=== PATIENT | female | born 1980 | race African-American/Black ===

== ENCOUNTER 2024-07-07 08:44 | Outpatient (CLI) | payer BC, SELFPAY ==
--- NOTE | ~2024-07-07 | MM_ITS ---
EXAMINATION: MM screening chandan BI w mulu HISTORY: Screening mammogram TECHNIQUE: Craniocaudal and mediolateral oblique 3-D tomosynthesis images were obtained and synthetic 2-D images were generated. CAD analysis was submitted and interpreted. COMPARISON: No prior mammogram is available for comparison at this institution. BREAST PARENCHYMAL COMPOSITION:Not Dense. The breasts are almost entirely fatty FINDINGS: No suspicious mass, calcification, or architectural distortion are identified in either mundo ast to suggest malignancy. There has been no suspicious interval change. IMPRESSION: No mammographic evidence of malignancy. Recommend routine screening mammography in one year. BI-RADS Category 1: Negative Reviewed, dictated and finalized at location . RUMENT TECHNOLOGIST
== END 2024-07-07 08:45 | disposition home or self-care (01) ==
LOC: ANHIMG 08:46
PROVIDERS: PCP Emergency Medicine; Visit Provider Emergency Medicine
DX: Z12.31 Encounter for screening mammogram for malignant neoplasm of breast (principal)
CPT/HCPCS: 77063; 77067

== ENCOUNTER 2025-07-26 09:50 | Outpatient (CLI) | payer BC, SELFPAY ==
--- NOTE | 2025-07-26 10:30 | NEURO_ITS ---
Clinical note: Patient is 44-year-old with history of paresthesias in both upper limbs particularly in the hands and fingers. No history of diabetes mellitus or major trauma. A brief neurological examination did not show evidence for any focal muscle wasting or fasciculations or weakness. The results of EMG and nerve conduction study are given below. Summary of findings: 1. Left and right median motor distal latencies are mildly prolonged. Amplitudes are mildly decreased and conduction velocity from elbow to wrist were within normal limits. 2. Left and right ulnar motor distal latencies, amplitudes and conduction velocities were within normal limits however there is a mild focal slowing across the left elbow. 3. Right median palmar and digital sensory distal latencies are mildly prolonged and conduction velocity mildly decreased. Left median palmar sensory distal latency was normal however the difference within the palmar distal latency with the radial distal latency was mildly prolonged and also left median digital sensory distal latency mildly prolonged. Left night ulnar palmar sensory distal latency was normal however amplitudes were decreased, right more than left side. Left and right ulnar sensory distal latencies a mildly prolonged amplitude of moderate decreased on the right and normal on the left side. Left and right radial sensory distal latencies amplitudes within normal limits. 4. EMG examination is performed were various muscles examined in both upper Limbs using a monopolar needle electrode. No denervation changes were seen. Decreased recruitment was noted in the left 1st dorsal interossei. Impression: 1. Mild right and minimal left carpal tunnel syndrome. No denervation changes were noted in the bilateral abductor pollicis brevis. 2. 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 Mild decreased recruitment was noted in the left 1st dorsal interossei but no denervation changes were seen. 3. Bilateral ulnar digital sensory distal latencies mildly prolonged and amplitudes were particular decreased on the right side. These findings may raise possibility of underlying peripheral neuropathy versus mild ulnar neuropathy at wrist. Clinical correlation is recommended. EMG and nerve conduction study of the lower limbs may be helpful if clinically indicated. Dawood RASMUSSEN MD, FAAN, FAANEM Neurology and electrodiagnostic Medicine Nerve Conduction Studies Motor Nerve Results ? Latency Amplitude F-Lat Segment Distance CV Comment Site (ms) (mV) (ms) (cm) (m/s) Left Median (APB) Motor Wrist 4.5 5.4 Elbow 8.8 6.1 Elbow-Wrist 210 49 Right Median (APB) Motor Wrist 4.5 4.5 Elbow 8.7 4.8 Elbow-Wrist 215 51 Left Ulnar (ADM) Motor Wrist 3.0 8.5 Bel Elbow 6.1 5.7 Bel Elbow-Wrist 200 65 Abv Elbow 7.8 5.8 Abv Elbow-Bel Elbow 75 44 Right Ulnar (ADM) Motor Wrist 3.4 7.7 Bel Elbow 6.9 6.2 Bel Elbow-Wrist 205 59 Abv Elbow 8.5 4.9 Abv Elbow-Bel Elbow 80 50 Sensory Nerve Results ? Latency (Peak) Amplitude (P-P) Segment Distance CV Comment Site (ms) (?V) (cm) (m/s) Left Median DigIII Sensory Wrist-Dig III 3.9 61 Wrist-Dig III 145 37 Right Median DigIII Sensory Wrist-Dig III 4.1 48 Wrist-Dig III 145 35 Left Median-Ulnar Palmar Sensory ? Median Palm-Wrist 2.2 34 Palm-Wrist 80 36 ? Ulnar Palm-Wrist 1.93 10 Palm-Wrist 80 41 Right Median-Ulnar Palmar Sensory ? Median Palm-Wrist 2.4 20 Palm-Wrist 80 33 ? Ulnar Palm-Wrist 1.78 2 Palm-Wrist 80 45 Left Radial Sensory Forearm-Wrist 1.68 44 Forearm-Wrist 100 60 Right Radial Sensory Forearm-Wrist 1.88 42 Forearm-Wrist 100 53 Left Ulnar Sensory Wrist-Dig V 3.6 24 Wrist-Dig V 145 40 Right Ulnar Sensory Wrist-Dig V 3.5 7 Wrist-Dig V 145 41 Electromyography ?Side Muscle Nerve Ins Act Fibs Psw Amp Dur Recrt Comment Right Deltoid Axillary Nml Nml Nml Nml Nml Nml Right Biceps Musculocut Nml Nml Nml Nml Nml Nml Right Triceps Radial Nml Nml Nml Nml Nml Nml Right Ext Digitorum Radial (Post Int) Nml Nml Nml Nml Nml Nml Right ExtCarUln Radial (Post Int) Nml Nml Nml Nml Nml Nml Right Ext Indicis Radial (Post Int) Nml Nml Nml Nml Nml Nml Right FlexPolLong Median (Ant Int) Nml Nml Nml Nml Nml Nml Right 1stDorInt Ulnar Nml Nml Nml Nml Nml Nml Right Abd Poll Brev Median Nml Nml Nml Nml Nml Nml Right FlexDigProf Ulnar Nml Nml Nml Nml Nml Nml Right FlexCarRad Median Nml Nml Nml Nml Nml Nml Left Deltoid Axillary Nml Nml Nml Nml Nml Nml Left Biceps Musculocut Nml Nml Nml Nml Nml Nml Left Triceps Radial Nml Nml Nml Nml Nml Nml Left Ext Digitorum Radial (Post Int) Nml Nml Nml Nml Nml Nml Left ExtCarUln Radial (Post Int) Nml Nml Nml Nml Nml Nml Left Ext Indicis Radial (Post Int) Nml Nml Nml Nml Nml Nml Left FlexPolLong Median (Ant Int) Nml Nml Nml Nml Nml Nml Left 1stDorInt Ulnar Nml Nml Nml Nml >12ms +1 Left Abd Poll Brev Median Nml Nml Nml Nml Nml Nml Left FlexDigProf Ulnar Nml Nml Nml Nml Nml Nml Left FlexCarRad Median Nml Nml Nml Nml Nml Nml
--- OUTSIDE RECORDS SUMMARY | 2025-07-26 10:45 | XMS_ITS | Clinical Summary ---
Author Organization [facility] Care Team Providers Care Patient Financial Services Manager Name Role Phone Unavailable Primary Care Provider Unavailabl e Social History Tobacco Use Types Packs/Day Years Used Date Smoking Tobacco: Never Assessed Comments Unknown Sex and Gender Information Value Date Recorded Sex Assigned at Not on file Legal Sex Female 7:26 AM [employer] Gender Identity Not on file Sexual Orientation Not on file Plan of Treatment Health Maintenance Due Date Last Done Comments Hepatitis C Virus (HCV) Screening 1980 TdaP Immunization 1980 Hepatitis B Immunization (1 of 3 - 19+ 3-dose series) 10/21/1998 Pap Smear 10/21/2000 Human Papillomavirus (HPV) Immunization (1 - 3-dose SCDM series) 10/21/2006 Cervical Cancer Screening (CCS) 10/21/2009 HPV/Cotest 10/21/2009 Cologuard 10/21/2024 Colonoscopy 10/21/2024 Colorectal Cancer Screening 10/21/2024 Immunochemical Fecal Occult Blood 10/21/2024 Influenza Immunization (#1) 2025 SARS-COV-2 Immunization ( season) 2025 Respiratory Syncytial Virus (RSV) Immunization (Adult) (1 - 1-dose 75+ series) 10/21/2054 Meningococcal Immunization (ACWY) Aged Out No longer eligible based on patient's age to complete this topic Pneumococcal Immunization Combined Aged Out No longer eligible based on patient's age to complete this topic Rotavirus Immunization Aged Out No lo nger eligible based on patient's age to complete this topic
--- OUTSIDE RECORDS SUMMARY | 2025-07-26 10:45 | XMS_ITS | Clinical Summary ---
Author Organization [facility] Address [address] [place] [address] Phone Care Team Providers Care Adjunct Nursing Faculty Name Role Phone Andreina Marisela ADMINISTRATIVE OFFICE MANAGER Unavailable [phone] Chen Martinez ADMINISTRATIVE OFFICE MANAGER Unavailable [phone] Ruddy Taveras MD Primary Care Provider [phone] Allergies No known active allergies Medications carBAMazepine (TEGretol) 200 mg tablet 09/07/2017Carbamazepi ne, po solid 200 mg TabletPOBIDCurrent Medication 09/07/19 18 Active famotidine (PEPCID) 20 mg tablet Take 1 tablet (20 mg total) by mouth 2 (two) times a day 0 03/02/20 19 Active predniSONE (DELTASONE) 10 mg tablet 0 03/02/20 19 Active folic acid (FOLVITE) 1 mg tablet Active docusate sodium (COLACE) 100 mg capsule Active oxyCODONE-acet aminophen (PERCOCET) 5-325 mg per tablet Active ondansetron (ZOFRAN) 4 mg tablet Active levETIRAcetam (KEPPRA) 750 mg tablet Active levETIRAcetam (KEPPRA) 250 mg tablet Active ibuprofen (ADVIL,MOTRIN) 600 mg tablet Active ibuprofen (ADVIL,MOTRIN) 400 mg tablet Active diphenhydrAMIN E (BENADRYL) 50 mg capsule Active PNV with hygvxig-omxp-K A 27 mg iron- 1 mg tablet Active cyanocobalamin -cobamamide 5,000-100 mcg lozenge Active norethindrone (MICRONOR) 0.35 mg tablet 06/23/20 Active bisacodyl EC (DULCOLAX EC) 5 mg EC tabletIndicati ons:constipati on Take 1 tablet (5 mg total) by mouth daily as needed for constipation 4 tablet 05/19/20 Active Additional Information Patient not taking.Reported on 05/30/2025 amLODIPine (NORVASC) 10 mg tablet Take 1 tablet (10 mg total) by mouth daily Act theodore Active Problems Problem Noted Date Diagnosed Date B12 deficiency 12/01/2024 Screening for colon cancer 09/15/2024 Assessment & Plan (09/15/2024 8:13 AM TOOL DISPATCHER): Colonoscopy May 2024 with internal hemorrhoids, otherwise unremarkable. -Repeat colonoscopy May 2034 Gastric intestinal metaplasia 09/15/2024 Assessment & Plan (09/15/2024 8:17 AM TOOL DISPATCHER): Noted on pathology from EGD biopsies May 2024. -Repeat EGD May 2027 for surveillance -Order labs - intrinsic factor antibody, antiparietal cell antibody, gastrin level, and vitamin B12 Iron deficiency anemia, unspecified 04/27/2019 Iron deficiency anemia 05/11/2017 Assessment & Plan (09/15/2024 8:12 AM TOOL DISPATCHER): Patient has a history of iron-deficiency anemia and has been on IV iron infusions. Patient denies any overt GI bleeding. EGD and colonoscopy May 2024 with gastritis and internal hemorrhoids, otherwise unremarkable. Capsule Endoscopy June 2024 normal. -Continue to follow up with Hematology Assessment & Plan (05/19/2024 11:59 AM CDT): Patient has a history of iron-deficiency anemia and has been on IV iron infusions. Patient denies any overt GI bleeding. No prior EGD or colonoscopy. -schedule EGD and colonoscopy -The risks (risks of bleeding, infection, perforation requiring surgery, missed polyps/cancer, dental injury, aspiration pneumonia, anesthesia complications such as drug reaction and cardiopulmonary complications including rare chance of ), benefits, and alternatives of the planned procedure were explained to the patient who understands and consents to having procedure done. 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 01/30/2016 Encounters Date Type Department Care Team Description 05/31/2025 Results Follow-Up [facility] H[facility] [address] [place] [phone] Yazmin Peres, ERIN Vitamin B12, Reticulocyte Count, Iron profile w/ IBC, Additional followed-up results: 5 05/30/2025 1:00 PM CDT Office Visit [facility] Hemat[facility] [address] [place] [phone] Yazmin Peres NP B12 deficiency (Primary Dx); Iron deficiency anemia, unspecified iron deficiency anemia type 05/30/2025 12:15 PM CDT Lab [facility] at [address] [id number] B12 deficiency; Iron deficiency anemia, unspecified iron deficiency anemia type from Last 3 Months Immunizations Immunization Administration Dates Next Due Influenza, Quadrivalent, Split, Intramuscular Influenza, Trivalent, Cell C ulture-based MDCK, Preservative Free, Antibiotic Free, Intramuscular 09/24/2014 Influenza, Unspecified 06/09/2017 Tdap 01/16/2015 Surgical History Surgery Date Site/Laterality Comments SECTION LIPOSUCTION EXTREMITIES LIPOSUCTION TRUNK Medical History Medical History Date Comments Anemia Seizures (HCC) Iron deficiency anemia Hypertension History of transfusion Family History Medical History Relation Name Comments Diabetes Father Relation Name Status Comments Father Alive Social History Tobacco Use Types Packs/Day Years Used Date Smoking Tobacco: Never Smokeless Tobacco: Never Tobacco Cessation:Counseling Given: Not Answered Alcohol Use Standard Drinks/Week Comments No 0 (1 standard drink = 0.6 oz pur e alcohol) AUDIT-C Answer Date Recorded Q1: How often do you have a drink containing alcohol? Never 07/11/2024 Q2: How many drinks containi ng alcohol do you have on a typical day when you are drinking? Patient does not drink Q3: How often do you have si x or more drinks on one occasion? Never 07/11/2024 Personal Safety Answer Date Recorded Have you ever been in or are you currently in a harmful physical or emotional relationship or is someone making you feel afraid or unsafe? Denies 06/06/2024 Comments No Sex and Gender Information Value Date Recorded Sex Assigned at Not on file Legal Sex Female 5:05 AM TOOL DISPATCHER Gender Identity Not on file Sexual Orientation Not on file Last Filed Vital Signs Vital Sign Reading Time Taken Comments Blood Pressure 144/86 05/30/2025 1:01 PM CDT Pulse 72 05/30/2025 1:01 PM CDT Temperature 36.3 C (97.4 F) 05/30/2025 1:01 PM CDT Respiratory Rate 18 05/30/2025 1:01 PM CDT Oxygen Saturation 98% 05/30/2025 1:01 PM CDT Inhaled Oxygen Concentration - - Weight 92 kg (202 lb 13.2 oz) 05/30/2025 1:01 PM CDT Height 160 cm (5' 3) 11/27/2024 3:07 PM CDT Body Mass Index 35.93 11/27/2024 3:07 PM CDT Plan of Treatment Health Maintenance Due Date Last Done Comments Breast Cancer Screening-Mammogram 1980 Depression Screening 1980 Hepatitis C Screening 1980 Varicella Vaccines (1 of 2 - 13+ 2-dose series) 10/21/1992 Hepatitis B Screening 10/21/1997 Regular Well Visit/Exam 18-64 10/21/1997 HPV Vaccines (1 - 3-dose SCD M series) 10/21/2006 Cervical Cancer Screening 05/20/2016 05/20/2015 DTaP/Tdap/Td Vaccine (2 - Td or Tdap) 01/16/2025 01/16/2015 Influenza Vaccine (#1) 2025 7, 06/25/2016, 09/24/2014 Colon Cancer Screening-Colonoscopy 06/06/2034 06/06/2024 Pneumococcal vaccine <65 Aged Out No longer eligible based on patient's age to complete this topic Procedures Procedure Name Priority Date/Time Associated Diagnosis Comments EGFR Routine 05/30/2025 12:20 PM CDT B12 deficiency Iron deficiency anemia, unspecified iron deficiency anemia type DIFFERENTIAL AUTO Routine 05/30/2025 12: 20 PM CDT B12 deficiency Iron deficiency anemia, unspecified iron deficiency anemia type CBC WITH AUTO DIFFERENTIAL Routine 05/30/2025 12:20 PM CDT B12 deficiency Iron deficiency anemia, unspecified iron deficiency anemia type COMPREHENSIVE METABOLIC PANEL Routine 05/30/2025 12:20 PM CDT B12 deficiency Iron deficiency anemia, unspecified iron deficiency anemia type FERRITIN Routine 05/30/2025 12:20 PM CDT B12 deficiency Iron deficiency anemia, unspecified iron deficiency anemia type IRON PROFILE W/ IBC Routine 05/30/2025 1 2:20 PM CDT B12 deficiency Iron deficiency anemia, unspecified iron deficiency anemia type RETICULOCYTES Routine 05/30/2025 12:20 PM CDT B12 deficiency Iron deficiency anemia, unspecified iron deficiency anemia type VITAMIN B12 Routine 05/30/2025 12:20 PM CDT B12 deficiency Iron deficiency anemia, unspecified iron deficiency anemia type COLONOSCOPY 06/06/2024 2:17 PM CDT from Last 3 Months or Most Recently Relevant to Health Maintenance Results * eGFR (05/30/2025 12:20 PM CDT) eGFR >90 >=60 mL/min/1. 73 m2 Comment: Interpretive Data Reference Interval Normal >/= 90 mL/min/1.73m2 Mildly decreased* 60 - 89 mL/min/1.73m2 Mildly to moderately decreased 45 - 59 mL/min/1.73m2 Moderately to severely decreased 30 - 44 mL/min/1.73m2 Severely decreased 15 - 29 mL/min/1.73m2 Kidney Failure < 15 mL/min/1.73m2 *Relative to young adult level Estimated glomerular filtration rate is determined by the 2020 CKD-EPI equation recommended by the National Kidney Foundation (A Unifying Approach to GFR Estimation: Recommendations of the NKF-ASK Task Force on Reassessing the Inclusion of Race in Diagnosing Kidney Disease, JASN 2020). The CKD-EPI equation should not be used for patients with unstable renal function and has not been validated in children and those over 70. Current interpretive data was last reviewed 2021. Testing performed by: [address] [address] Blood 05/30/2025 12:2 0 PM CDT 05/30/2025 12:26 PM CDT us Yazmin Peres ADMINISTRATIVE OFFICE MANAGER LAB BLOOD ORDERABLES [facility] al Result [facility] [address] [facility] [place] [address] * Differential, auto (05/30/2025 12:20 PM CDT) Neutrophil abs 2.95 1.50 - 6.50 K/cumm Comment:Testing performed by : [address] [address] Imm gran abs 0.01 0.00 - 0.10 K/cumm [facility] Comment:Testing performed by : [address] [address] Lymphocyte abs 1.52 0.80 - 3.30 K/cumm [facility] Comment:Testing performed by : [address] [address] Monocyte abs 0.48 0.20 - 0.80 K/cumm [facility] Comment:Testing performed by : [address] [address] Eosinophil abs 0.00 0.00 - 0.50 K/cumm [facility] Comment:Testing performed by : [address] [address] Basophil abs 0.00 0.00 - 0.10 K/cumm [facility] Comment:Testing performed by : [address] [address] Neutrophil pct 59.5 % [facility] Comment: Interpretive Data Percent cell count reference ranges are not reported, since discordance with absolute values may lead to misinterpretation of CBC data. Current Interpretive Data was last revised on 2017. Testing performed by: [address] [address] Imm gran pct 0.2 % [facility] Comment: Interpretive Data Percent cell count reference ranges are not reported, since discordance with absolute values may lead to misinterpretation of CBC data. Current Interpretive Data was last revised on 2017. Testing performed by: [address] [address] Lymphocyte pct 30.6 % [facility] Comment: Interpretive Data Percent cell count reference ranges are not reported, since discordance with absolute values may lead to misinterpretation of CBC data. Current Interpretive Data was last revised on 2017. Testing performed by: [address] [address] Monocyte pct 9.7 % [facility] Comment: Interpretive Data Percent cell count reference ranges are not reported, since discordance with absolute values may lead to misinterpretation of CBC data. Current Interpretive Data was last revised on 2017. Testing performed by: [address] [address] Eosinophil pct 0.0 % [facility] Comment: Interpretive Data Percent cell count reference ranges are not reported, since discordance with absolute values may lead to misinterpretation of CBC data. Current Interpretive Data was last revised on 2017. Testing performed by: [address] [address] Basophil pct 0.0 % [facility] Comment: Interpretive Data Percent cell count reference ranges are not reported, since discordance with absolute values may lead to misinterpretation of CBC data. Current Interpretive Data was last revised on 2017. Testing performed by: [address] [address] Blood 05/30/2025 12:2 0 PM CDT 05/30/2025 12:26 PM CDT us Yazmin Peres NP LAB BLOOD ORDERABLES Fin al Result [facility] [address] [facility] [place] [address] * Iron profile w/ IBC (05/30/2025 12:20 PM CDT) Iron 84 35 - 145 mcg/dL Comment:Testing performed by : [address] [address] TIBC 340 250 - 400 mcg/dL [facility] Comment:Testing performed by : [address] [address] Transferrin saturation 25 20 - 50 % [facility] Comment:Testing performed by : [address] [address] Blood 05/30/2025 12:2 0 PM CDT 05/30/2025 1:45 PM CDT us Yazmin Peres ADMINISTRATIVE OFFICE MANAGER LAB BLOOD ORDERABLES [facility] al Result [facility] Department [place] [address] * CBC with auto differential (05/30/2025 12:20 PM CDT) Pathologist [facility] WBC 4.96 3.80 - 9.90 K/cumm Comment:Testing performed by : [address] [address] Hgb 13.6 11.9 - 15.5 g/dL [facility] Comment:Testing performed by : [address] [address] Hct 39.5 35.6 - 45.5 % [facility] Comment:Testing performed by : [address] [address] Plt 230 150 - 400 K/cumm [facility] Comment:Testing performed by : [address] [address] MPV 9.9 9.1 - 12.3 fL [facility] Comment:Testing performed by : [address] [address] RBC 4.54 3.90 - 5.20 M/cumm [facility] Comment:Testing performed by : [address] [address] MCV 87.0 81.3 - 96.4 fL [facility] Comment:Testing performed by : [address] [address] MCH 30.0 27.1 - 33.3 pg [facility] Comment:Testing performed by : [address] [address] MCHC 34.4 32.3 - 35.7 g/dL [facility] Comment:Testing performed by : [address] [address] RDW CV 11.7 11.1 - 14.9 % [facility] Comment:Testing performed by : [address] [address] RDW SD 37.3 35.7 - 48.1 fL [facility] Comment:Testing performed by : [address] [address] NRBC abs 0.00 0.00 - 0.01 K/cumm [facility] Comment:Testing performed by : [address] [address] ANC Prelim 2.95 1.50 - 6.50 K/cumm [facility] Comment: Interpretive Data The rapid ANC is a preliminary automated count and may vary from the final ANC (Neut Abs) reported in the WBC differential that follows. Current interpretive data was last revised 2024. Testing performed by: [address] [address] Blood 05/30/2025 12:2 0 PM CDT 05/30/2025 12:26 PM CDT us Yazmin Peres ADMINISTRATIVE OFFICE MANAGER LAB BLOOD ORDERABLES Fin al Result [facility] [address] [facility] Department [place] [address] * Reticulocyte Count (05/30/2025 12:20 PM CDT) Retics, absolute 87 20 - 87 K/cumm Comment:Testing performed by : [address] [address] Retics 1.9 0.4 - 2.9 % [facility] Comment:Testing performed by : [address] [address] Reticulocyte Hgb 33.6 30.5 - 38.0 pg [facility] Comment:Testing performed by : [address] [address] Blood 05/30/2025 12:2 0 PM CDT 05/30/2025 12:26 PM CDT Yazmin Peres ADMINISTRATIVE OFFICE MANAGER LAB BLOOD ORDERABLES Fin al Result [address] [place] [address] * Ferritin (05/30/2025 12:20 PM CDT) Ferritin 107 13 - 150 ng/mL Comment:Testing performed by : [address] [address] Blood 05/30/2025 12:2 0 PM CDT 05/30/2025 1:45 PM CDT Yazmin Peres ADMINISTRATIVE OFFICE MANAGER LAB BLOOD ORDERABLES Fin al Result Performing Organization Address City/[facility]/ZIP Co de Phone Number [address] [place] [address] * Vitamin B12 (05/30/2025 12:20 PM CDT) Vitamin B12 562 230 - 1,250 pg/mL Comment:Testing performed by : [address] [address] Blood 05/30/2025 12:2 0 PM CDT 05/30/2025 1:44 PM CDT Yazmin Peres ADMINISTRATIVE OFFICE MANAGER LAB BLOOD ORDERABLES Fin al Result [address] [place] [address] * Comprehensive metabolic panel (05/30/2025 12:20 PM CDT) Sodium 138 135 - 145 mmol/L Comment:Testing performed by : [address] [address] Potassium, pl 3.9 3.3 - 4.9 mmol/L [facility] Comment:Testing performed by : [address] [address] Chloride 102 97 - 110 mmol/L [facility] Comment:Testing performed by : [address] [address] CO2 25 22 - 32 mmol/L [facility] Comment:Testing performed by : [address] [address] Anion gap 11 2 - 15 mmol/L [facility] Comment:Testing performed by : [address] [address] BUN 13 6 - 25 mg/dL [facility] Comment:Testing performed by : [address] [address] Creatinine 0.70 0.60 - 1.10 mg/dL [facility] Comment:Testing performed by : [address] [address] Glucose 89 70 - 199 mg/dL [facility] Comment: Interpretive Data Fasting glucose >/= 126 mg/dl is diagnostic for diabetes. Fasting is defined as no caloric intake for at least 8 hours. Fasting glucose between 100 mg/dl to 125 mg/dl is diagnostic of prediabetes. In a patient with classic symptoms of hyperglycemia or hyperglycemic crisis, a random glucose >/= 200 mg/dl is diagnostic for diabetes. In the absence of unequivocal hyperglycemia, results should be confirmed by repeat testing. The classification and Diagnosis of Diabetes Diabetes Care 2021; 46: S19-S40. Current interpretive data was last revised 2022. Testing performed by: [address] [address] Calcium 9.1 8.5 - 10.3 mg/dL [facility] Comment:Testing performed by : [address] [address] Bilirubin, total 0.6 0.1 - 1.2 mg/dL [facility] Comment:Testing performed by : [address] [address] Protein, pl 7.5 6.5 - 8.5 g/dL [facility] Comment:Testing performed by : [address], [address] Albumin 4.5 3.5 - 5.0 g/dL [facility] Comment:Testing performed by : [address] [address] Alk phos 80 40 - 130 Units/L [facility] Comment:Testing performed by : [address], [address] ALT 28 7 - 45 Units/L [facility] Comment:Testing performed by : [address], [address] AST 30 10 - 45 Units/L [facility] Comment:Testing performed by : [address], [address] Blood 05/30/2025 12:2 0 PM CDT 05/30/2025 12:26 PM CDT Yzamin Peres NP LAB BLOOD ORDERABLES Fin al Result Performing Organization Address City/State/[facility] Co de Phone Number [facility] [address] [facility] [place] [address] * Colonoscopy (06/06/2024 2:17 PM CDT) Anatomical Region Laterality Modality Other Narrative Procedure Note Vic Villa MD - 06/06/2024 2:17 PM CDT [facility] GI ENDOSCOPY Patient Name: Ramya Wan Procedure Date: 06/06/2024 2:17 PM Date of : 1980 Admit Type: Outpatient Age: 43 Gender: Female Attending MD: Vic Villa M.D. Room: [facility] ENDOSCOPY ROOM 06 Note Status: Finalized Procedure: Colonoscopy Indications: Iron deficiency anemia Referring MD: Marisela Hdz NP Providers: Vic Villa M.D. Medicines: Monitored Anesthesia Care Complications: No immediate complications. Estimated Blood Loss: Estimated blood loss: none. Procedure: Pre-Anesthesia Assessment: - Prior to the procedure, a History and Physicalwas performed, and patient medications and allergieswere reviewed. The risks and benefits of the procedureand the sedation options and risks were discussed withthe patient. All questions were answered and informed consent was obtained. Patient identification and proposed procedure were verified. After reviewingthe risks and benefits, the patient was deemed in satisfactory condition to undergo the procedure.The anesthesia plan was to use monitored anesthesiacare (MAC). Immediately prior to administration of medications, the patient was re-assessed foradequacy to receive sedatives. The heart rate, respiratory rate, oxygen saturations, blood pressure, adequacyof pulmonary ventilation, and response to care were monitored throughout the procedure. The physical status of the patient was re-assessed after the procedure. The benefits, risks and alternatives of theprocedure and sedation were discussed and informed consentwas obtained. All questions were answered. Please referto the signed informed consent document in the medical record. The scope was passed under direct vision.The Colonoscope was introduced through the anus and advanced to the cecum, identified by appendiceal orifice and ileocecal valve. The colonoscopy was performed without difficulty. The patient tolerated the procedure well. The quality of the bowel preparation was adequate. Scope withdrawal time was11 minutes. Prep was administered in a split dose. Findings: The perianal and digital rectal examinations were normal. Non-bleeding internal hemorrhoids were found during retroflexion. The hemorrhoids were small. The exam was otherwise without abnormality. Impression: - Non-bleeding internal hemorrhoids. - The examination was otherwise normal. - No specimens collected. Recommendation: - Patient has a contact number available for emergencies. The signs and symptoms of potential delayed complications were discussed with thepatient. Return to normal activities tomorrow. Written discharge instructions were provided to thepatient. - High fiber diet. - Continue present medications. - Repeat colonoscopy in 10 years for screening purposes. Vic Villa M.D. Vic Villa M.D. 06/06/2024 2:46:07 PM . Number of Addenda: 0 Note Initiated On: 06/06/2024 2:17 PM Recognized by the [employer] for promoting quality in endoscopy Vic Villa MD ENDOSCOPY PROCEDURES Final Resul t from Last 3 Months or Most Recently Relevant to Health Maintenance Insurance [employer] Care Teams Adjunct Nursing Faculty Relationship Specialty Start Date End Date Ruddy Taveras MD [address] [place] [id number] PCP - General Emergency Medicine 06/27/24 Marisela Hdz NP [address] [place] [address] Family Practice 12/05/18 Chen Martinez NP [address] [place] [address] Nurse Practitioner Medical Oncology 06/10/23
--- OUTSIDE RECORDS SUMMARY | 2025-07-26 10:45 | XMS_ITS | Encounter Summary ---
Author Organization [facility] Address [address] [place] [address] Phone Care Team Providers Care Curing Press Operator Name Role Phone Marisela Hdz COSMETOLOGY TEACHER Unavailable [phone] Chen Martinez COSMETOLOGY TEACHER Unavailable [phone] Ruddy Taveras MD Primary Care Provider [phone] Encounter Details Date Type Department Care Team (Late st Contact Info) Description 05/31/2025 Results Follow-Up [facility] [address] [facility] [address] [place] [address] Yazmin Peres, ERIN [address] [place] [address] Vitamin B12, Reticulocyte Count, Iron profile w/ IBC, Additional followed-up results: 5 Social History Tobacco Use Types Packs/Day Years Used Date Smoking Tobacco: Never Smokeless Tobacco: Never Alcohol Use Standard Drinks/Week Comments No 0 [...] on file Legal Sex Female 5:05 AM SUPERVISOR LEAD REFINERY Gender Identity Not on file Sexual Orientation Not on file documented as of this encounter Plan of Treatment Not on file documented as of this encounter Visit Diagnoses Not on filedocumented in this encounter Care Teams Curing Press Operator Relationship Specialty Start Date End Date Ruddy Taveras MD [address] [place] [address] PCP - General Emergency Medicine 06/27/24 Marisela Hdz NP [address] [place] [address] Family Practice 12/05/18 Chen Martinez NP [address] [place] [phone] Nurse Practitioner Medical Oncology 06/10/23 documented as of this encounter
--- OUTSIDE RECORDS SUMMARY | 2025-07-26 10:45 | XMS_ITS | Clinical Summary ---
Author Organization [facility] [facility] Address [address] [place] [address] Care Team Providers Care Vibrator Equipment Tester Name Role Phone Unavailable Primary Care Provider Unavailabl e Source Comments [facility] [employer],non-owned Affiliates and Associated Physician Practices is amultiple site organization consisting of ambulatory clinics and hospital sitesin [place], [place], [place] and [place]. This disclosure is being madepursuant to the Care Everywhere program and may not contain all information available regarding this patient. Last updated 18.[facility] [employer] Allergies No known active allergies Medications * Be aware that medications may not be up to date on this document. Alwaysverify current medications with the patient. 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 No lupus or drug induced lupus noted. Generalized seizure disorder 10/27/2023 Overview (10/27/2023): Well controlled on carbamezapine over the past 19 years. No need to change epilepsy (seizure) treatment at this time based upon positive JUANITA test result. Social History Tobacco Use Types Packs/Day Years Used Date Smoking Tobacco: Never Assessed Comments No Sex and Gender Information Value Date Recorded Sex Assigned at Not on file Legal Sex Female 10:27 AM DIRECTOR REPORT Gender Identity Not on file Sexual Orientation Not on file Last Filed Vital Signs Vital Sign Reading Time Taken Comments Blood Pressure 120/80 10/27/2023 2:19 PM DIRECTOR REPORT Pulse 83 10/27/2023 2:19 PM DIRECTOR REPORT Temperature 36.7 C (98 F) 10/27/2023 2:19 PM DIRECTOR REPORT Respiratory Rate 16 10/27/2023 2:19 PM DIRECTOR REPORT Oxygen Saturation 100% 10/27/2023 2:19 PM DIRECTOR REPORT Inhaled Oxygen Concentration - - Weight 63.5 kg (140 lb) 10/27/2023 2:19 PM DIRECTOR REPORT Height 160 cm (5' 3) 10/27/2023 2:19 PM DIRECTOR REPORT Body Mass Index 24.8 10/27/2023 2:19 PM DIRECTOR REPORT Plan of Treatment Health Maintenance Due Date Last Done Comments COLOGUARD (AGES 45-75) - COL ON CA SCREENING 1979 COLON MONITORING 1979 COLONOSCOPY - COLON CA SCREENING 1979 CT COLONOGRAPHY - COLON CA SCREENING 1979 Colorectal Cancer Screening 1979 FIT - COLON CA SCREENING 1979 FLEX SIG - COLON CA SCREENING 1979 LIPID TESTING 1979 MAMMOGRAM 1979 HIV SCREENING 10/21/1994 HEPATITIS C SCREENING 10/17/1997 DTAP/TDAP/TD VACCINES (1 - Tdap) 10/21/1998 HEPATITIS B VACCINE (1 of 3 - 19+ 3-dose series) 10/21/1998 Cervical Cancer Screening 10/21/2000 PAP SMEAR 10/21/2000 HPV VACCINE (1 - 3-dose SCDM series) 10/21/2006 PAP with HPV 10/21/2009 DEPRESSION SCREENING 08/23/2024 COVID-19 VACCINE (1 - 2024-2 6 season) 2025 INFLUENZA VACCINE (#1) 2025 06/25/2016 ZOSTER VACCINE (1 of 2) 10/21/2029 HIB VACCINE Aged Out No longer eligi ble based on patient's age to complete this topic MENINGOCOCCAL (Group B) VACC INE SHARED DECISION-MAKING Aged Out No longer eligibl e based on patient's age to complete this topic MENINGOCOCCAL GROUPS A/C/Y/W VACCINE Aged Out No longer eligible b ased on patient's age to complete this topic PNEUMOCOCCAL VACCINE Aged Out No long er eligible based on patient's age to complete this topic Insurance [facility] Address: [facility] [id number] [place] [address]
== END 2025-07-26 09:51 | disposition home or self-care (01) ==
PROVIDERS: PCP Emergency Medicine; Visit Provider Psychiatry & Neurology Neurology
DX: G56.01 Carpal tunnel syndrome, right upper limb (principal); E11.9 Type 2 diabetes mellitus without complications
CPT/HCPCS: 95886; 95911